=== PATIENT | female | born 1955 | race Caucasian/White ===

== ENCOUNTER → 2020-05-02 13:47 | Outpatient (CLI) | payer OTHER, SELFPAY ==
--- NOTE | ~2020-05-02 | MM_ITS ---
EXAMINATION: MM screening [facility] BI w brit HISTORY: Screening mammogram TECHNIQUE: Craniocaudal and mediolateral oblique 3-D tomosynthesis images were obtained and synthetic 2-D images were generated. CAD analysis was submitted and interpreted. COMPARISON: 02/24/2019, 12/31/2017, 12/05/2016, 11/25/2016 BREAST PARENCHYMAL COMPOSITION: There are scattered areas of fibroglandular density. FINDINGS: There is no evidence of suspicious mass, calcification, or architectural distortion to sugg est malignancy in either breast. There has been no suspicious interval change. IMPRESSION: 1. No mammographic evidence of malignancy. 2. Recommend routine screening mammography in one year. BI-RADS Category 1: Negative Reviewed, dictated and finalized at location A. CLEANER
== END ==
PROVIDERS: Visit Provider Obstetrics & Gynecology Gynecology
DX: Z12.31 Encounter for screening mammogram for malignant neoplasm of breast (principal)
CPT/HCPCS: 77063; 77067

== ENCOUNTER → 2021-06-28 09:47 | Outpatient (CLI) | payer OTHER, SELFPAY ==
--- NOTE | ~2021-06-28 | MM_ITS ---
EXAMINATION: MM screening [facility] BI w brit HISTORY: Screening mammogram TECHNIQUE: Craniocaudal and mediolateral oblique 3-D tomosynthesis images were obtained and synthetic 2-D images were generated. CAD analysis was submitted and interpreted. COMPARISON: 05/02/2020, 02/24/2019, 12/31/2017 BREAST PARENCHYMAL COMPOSITION: There are scattered areas of fibroglandular density. FINDINGS: Scattered benign-appearing calcifications are present. There is no evidence of suspicious m ass, calcification, or architectural distortion to suggest malignancy in either breast. There has bee n no suspicious interval change. IMPRESSION: 1. No mammographic evidence of malignancy. 2. Recommend routine screening mammography in one year. BI-RADS Category 2: Benign finding(s). Reviewed, dictated and finalized at location A. 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
== END ==
PROVIDERS: Visit Provider Obstetrics & Gynecology Gynecology
DX: Z12.31 Encounter for screening mammogram for malignant neoplasm of breast (principal)
CPT/HCPCS: 77063; 77067

== ENCOUNTER → 2022-10-09 11:00 | Outpatient (CLI) | payer OTHER, SELFPAY ==
--- NOTE | ~2022-10-09 | MM_ITS ---
EXAMINATION: MM screening [facility] w b[facility] HISTORY: Screening mammogram TECHNIQUE: Craniocaudal and mediolateral oblique 3-D tomosynthesis images were obtained and synthetic 2-D images were generated. CAD analysis was submitted and interpreted. COMPARISON: 06/28/2021, 05/02/2020, 02/24/2019 BREAST PARENCHYMAL COMPOSITION: There are scattered areas of fibroglandular density. FINDINGS: Scattered benign-appearing calcifications are present. RIGHT BREAST: No suspicious mass, calcification, or architectural distortion are identified to sugges t malignancy. There has been no suspicious interval change. LEFT BREAST: There is possible architectural distortion in the middle third of the left breast best a ppreciated 6.5 cm from the nipple on the mediolateral oblique view. IMPRESSION: 1. Possible left breast architectural distortion. 2. Additional mammographic views and possible breast ultrasound are recommended. BI-RADS Category 0: Incomplete: Needs additional imaging evaluation. Reviewed, dictated and finalized at location A. IMPRESSION: 1. Possible left breast architectural distortion. 2. Additional mammographic views and possible breast ultrasound are recommended . BI-RADS Category 0: Incomplete: Needs additional imaging evaluation.
== END ==
PROVIDERS: PCP Obstetrics & Gynecology Gynecology; Visit Provider Obstetrics & Gynecology Gynecology
DX: Z12.31 Encounter for screening mammogram for malignant neoplasm of breast (principal); R92.8 Other abnormal and inconclusive findings on diagnostic imaging of breast
CPT/HCPCS: 77063; 77067

== ENCOUNTER → 2022-10-09 14:40 | Outpatient (CLI) | payer OTHER, SELFPAY ==
--- NOTE | ~2022-10-09 | DEXA_ITS ---
Bone Density Report Name: KIM ZELAYA Age: 67 Sex: Female Ethnicity: White Date of : 1955 Indication: postmenopausal; screening for osteoporosis; height loss; Referring Provider: CLOVIS WILKINS Study: Bone densitometry was performed. Exam Date: October 09, 2022 Accession number: [id number] Bone Density: Region BMD T-score Z-score Classification AP Spine (L1-L4) 0.923 -1.1 0.7 Osteopenia Femoral Neck (Left) 0.766 -0.7 0.8 Normal Total Hip (Left) 1.060 1.0 2.3 Normal Femoral Neck (Right) 0.821 -0.3 1.3 Normal Total Hip (Right) 1.045 0.8 2.1 Normal Total Hip Mean 1.053 0.9 2.2 Normal World Health Organization criteria for BMD impression classify patients as: Normal (T-score at or above -1.0), Osteopenia (T-score between -1.0 and -2.5), or Osteoporosis (T-score at or below -2.5). 10-year Fracture Risk(1): Major Osteoporotic Fracture 7.0% Hip Fracture 0.4% Reported Risk Factors: [place] (), Neck BMD=0.766, BMI=41.1 (1) FRAX(R) Version 3.08. Fracture probability calculated for an untreated patient. Fracture probability may be lower if the patient has received treatment. Previous Exams: Region Exam Age BMD T-score BMD Change BMD Change Date g/cm2 vs Baseline vs Previous AP Spine(L1-L4) 10/09/2022 67 0.923 -1.1 -0.100* -0.013 02/24/2019 63 0.936 -1.0 -0.087* 0.025* 11/25/2016 61 0.911 -1.2 -0.112* -0.098* 10/19/2013 58 1.010 -0.3 -0.013 -0.013 11/13/2004 49 1.023 -0.2 Total Hip(Left) 10/09/2022 67 1.060 1.0 -0.189* -0.018 02/24/2019 63 1.078 1.1 -0.171* 0.054* 11/25/2016 61 1.024 0.7 -0.225* -0.074* 10/19/2013 58 1.098 1.3 -0.151* -0.151* 11/13/2004 49 1.249 2.5 Total Hip(Right) 10/09/2022 67 1.045 0.8 -0.196* -0.010 02/24/2019 63 1.055 0.9 -0.186* 0.079* 11/25/2016 61 0.976 0.3 -0.265* -0.097* 10/19/2013 58 1.073 1.1 -0.168* -0.168* 11/13/2004 49 1.241 2.4 *Denotes significance at 95% confidence level, LSC for AP Spine = 0.022 g/cm2, LSC for Total Hip = 0.027 g/cm2 Clinical Information Provided by Patient: Has used the following medications: Vitamin D Patient maximum height was 68 Menopause Age: 53 No regular weight bearing exercise Does not regularly consume dairy products Drinks caff
== END ==
PROVIDERS: PCP Obstetrics & Gynecology Gynecology; Visit Provider Obstetrics & Gynecology Gynecology
DX: Z78.0 Asymptomatic menopausal state (principal); M85.88 Other specified disorders of bone density and structure, other site
CPT/HCPCS: 77080

== ENCOUNTER → 2022-11-05 08:20 | Outpatient (CLI) | payer OTHER, SELFPAY ==
--- NOTE | ~2022-11-05 | MM_ITS ---
EXAMINATION: MM diagnostic [facility] w brit HISTORY: Possible left breast architectural distortion on screening mammogram TECHNIQUE: Additional 3-D tomosynthesis images of the left breast were performed and synthetic 2-D im ages were generated. CAD analysis was submitted and interpreted. COMPARISON: 09/29/2022, 07/18/2021,05/02/2020 FINDINGS: There is a return to baseline fibroglandular appearance with spot compression of the left b reast in the area questioned on screening mammogram. IMPRESSION: 1. No mammographic evidence of malignancy. 2. Recommend routine screening mammography in one year. BI-RADS Category 1: Negative Reviewed, dictated and finalized at location A.
== END ==
PROVIDERS: Visit Provider Obstetrics & Gynecology Gynecology
DX: R92.8 Other abnormal and inconclusive findings on diagnostic imaging of breast (principal)
CPT/HCPCS: 77061; 77065; G0279

== ENCOUNTER 2023-10-22 05:50 | Day surgery (SDC) | payer OTHER, SELFPAY ==
[2023-07-21 09:57] VITALS: BMI 32.9
[2023-10-22] VITALS (10 sets, daily range): BP systolic 120–150; BP diastolic 56–76; PULSE 59–94; RESP 12–22; TEMP 36.4–36.8; O2SAT 91–100; BMI 33.3
--- NOTE | 2023-10-22 06:56 | P.PNAN_ITS ---
Anes - Initial Pre Proc Eval Procedure: Operation Date: 10/22/23 07:30 Proposed Procedures p Bilateral Breast Reduction Mammoplasty - Byron Gambino MD Date/Time: 10/22/23 06:56 Surgeon: Byron Gambino MD Pre Op Diagnosis: Macromastia Patient Data Age: 68 Gender: F Height: 1.7 m Weight: 96.7 kg Last Vital Signs Temp 36.8 C 10/22/23 06:35 Pulse 68 10/22/23 06:35 Resp 16 10/22/23 06:35 BP 120/66 10/22/23 06:35 Pulse Ox 100 10/22/23 06:35 O2 Del Method Room Air 10/22/23 06:35 Allergies Allergy/AdvReac Type Severity Reaction Status Date / Time No Known Allergies Allergy Verified 10/22/23 06:17 Home Medications Medication Instructions Recorded Confirmed Type bupropion HCl 300 mg 24 hr tablet, 300 mg PO DIRECTED 10/08/23 10/22/23 History extended release ergocalciferol (vitamin D2) 1,250 1,250 mcg PO DIRECTED 10/08/23 10/22/23 History mcg (50,000 unit) capsule ferrous sulfate 325 mg (65 mg 325 mg PO DIRECTED 10/08/23 10/22/23 History iron) tablet (FeroSul) fexofenadine-pseudoephedrine ER 1 tablet PO DAILY 10/08/23 10/22/23 History 180 mg-240 mg tablet,ext.release 24 hr (Pam-D 24 Hour) fluticasone 250 mcg-salmeterol 50 1 inh inhalation BID 10/08/23 10/22/23 History mcg/dose blistr powdr for inhalation (Advair Diskus) montelukast 10 mg tablet 10 mg PO DIRECTED 10/08/23 10/22/23 History Patient hx anesthesia problems: none Family hx anesthesia problems: none Results Review: All pre-operative results and documents have been reviewed as part of the pre- operative evaluation. [facility] Past Medical History Medical History (Updated 10/22/23 @ 06:57 by Miguel Estevez DO) Depression Hiatal hernia PONV (postoperative nausea and vomiting) Social History Social History Smoking status: Never smoker Substance use type: does not use Living arrangements: with family Anes - Eval Final PreProcedure Day of Procedure 10/22/23 06:56 Patient weight: obese Heart: regular rate and rhythm Lungs: clear to auscultation Airway: Mallampati scale class II Neurological: alert and oriented Last oral intake: >/= 8 hours ASA classification: II Emergent: no Anesthetic plan: proceed Anesthesia type and monitoring: general LMA and standard monitoring Results Review: All pre-operative results and documents have been reviewed as part of the pre- operative evaluation. Informed Consent: The patient's anesthetic plan and its attendant risks and benefits were discussed with the patient/family/POA. Questions were solicited and answers provided to the satisfaction of the patient/family/POA.
--- NOTE | 2023-10-22 07:12 | WPDHPUPDATE1 ---
History and Physical Update Update Date/Time: 10/22/23 07:12 History and Physical has been reviewed, including an updated exam of the patient. There are NO changes in the patient's condition. Risks, benefits, and alternatives have been discussed and questions answered. Patient agrees to proceed with procedure.
--- NOTE | 2023-10-22 07:13 | P.OP_ITS ---
Procedure Note - Detailed Date of Procedure 10/22/23 Pre-op Diagnosis Macromastia Post-op Diagnosis Same Procedure Performed Bilateral reduction mammaplasty Surgeon Byron Gambino MD Anesthesia General Findings Inverted T Superior medial pedicle Tissue removed: Right - 804 grams Left - 872 grams Lipoaspirate: 1,000 cc Description of Procedure She is here today for bilateral breast reduction. Previously and again today the risks, benefits, alternatives were discussed in extensive detail. I wanted her to be very realistic about the risks involved as well as expectations. We discussed aftercare and what to monitor for. She understands we can never guarantee final breast size and there will always be asymmetry. I was very upfront and honest about the risks of sensation change and even nipple loss (). Made sure answered all of her questions to her satisfaction today and consent was obtained. She was marked in the preoperative holding area with their verification. The patient was taken to the operating room placed supine on the operating table. Anesthesia was provided by anesthesiology. She was prepped and draped in a standard sterile fashion. A surgical time-out was taken. Stab incisions were made and I tumesced with a tumescent solution. Suction lipectomy of lateral breast / chest wall was completed for contouring based on [employer] liposuction techniques utilizing a 4mm basket cannula. This was based on preoperative planning, intraoperative observation, and a rolling pinch test which was in full agreement. I marked out the nipple-areolar complex at 42 mm. I then de-epithelialized the pedicle. The pedicle was well left well more than 2 cm in thickness. I then removed the inferior portion of the breast as well as the central keel to get shape based on preoperative planning. At this point copiously irrigated with saline solution and verified a strict hemostasis. I reapproximated the pillars using a 2-0 PDS. I tailor tacked the breast into place with altaf. She was placed in a sitting position. I verified the nipple-areolar complex position based on preoperative markings, intraoperative measurements, and observation which were in full agreement. This nipple-areolar complex was marked at 42 mm in size. I then placed supine and de-epithelialized this. Nipple-areolar complex was inset with 3-0 Monocryl. I closed IMF deep with 1 strattafix. I closed the vertical incision with 3-0 Monocryl in the IMF with 3- 0 stratafix. Then everything was closed using a running subcuticular 4-0 Monocryl and tissue glue. A dressing was placed followed by surgical bra. Patient was awoke and taken to PACU without difficulty. All instrument sponge counts were correct at the end of the case. Estimated Blood Loss 75 Drains No Packing No Pathology Yes Complications No immediate complications Condition Stable Disposition PACU
--- NOTE | 2023-10-22 07:14 | SUR.PREOP ---
FEMALE STAFF MEMBER IN ROOM WITH DR UMAÑA WHILE HE MARKED PT. SPOUSE ALSO IN ROOM
[2023-10-22] MEDS: LACTATED RINGERS 1,000 ML 30 ML IV CONT ×2 (07:16→11:05)
[2023-10-22] MEDS: SCOPOLAMINE 1 MG PATCH 1 PATCH TRANSDERM (07:17)
[2023-10-22] MEDS: ceFAZolin SODIUM 2 GM/20 ML SW SYRINGE IV PUSH (07:24)
[2023-10-22] MEDS: LACTATED RINGERS IRRIG 1,000 ML, LIDOCAINE HCL 1% LOCAL INJ 50 ML, EPINEPHrine HCL INJ ... INFILTRATE (07:35)
[2023-10-22] MEDS: TRANEXAMIC ACID 1,000 MG/10 ML AMPUL 1000 MG IV PUSH (07:40)
[2023-10-22] MEDS: ONDANSETRON INJ 4 MG/2 ML VIAL IV PUSH (12:20)
--- NOTE | 2023-10-22 13:28 | WPDANESPN ---
Anes - Prog Note Post-Op Date/Time: 10/22/23 13:28 Cardiovascular status: normal Respiratory status: normal Airway patency: baseline Mental status: baseline Post-Op hydration status: normal Vital Signs: Last Vital Signs Temp 36.4 C 10/22/23 11:00 Pulse 59 L 10/22/23 13:15 Resp 16 10/22/23 13:15 BP 125/68 10/22/23 13:15 Pulse Ox 98 10/22/23 13:15 O2 Del Method Room Air 10/22/23 13:15 O2 Flow Rate 2 10/22/23 11:45 Pain Score (VAS): 3 I/O: Intake & Output 10/21/23 10/22/23 10/22/23 23:59 07:59 15:59 Intake Total 500 Balance 500 Post-procedural complaints: none Patient Feedback: Patient satisfied with anesthetic care. Other Findings: Patient vital signs back to baseline. Patient denies nausea and vomiting. Patient's pain under control. Patient OK for discharge.
== END 2023-10-22 13:45 | disposition home or self-care (01) ==
PROVIDERS: Visit Provider Surgery Plastic and Reconstructive Surgery
PROC: 0HBV0ZZ Excision of Bilateral Breast, Open Approach (ICD-10-PCS; CPT 19318; principal; 2023-10-22 07:30)
DX: N62 Hypertrophy of breast (principal)
CPT/HCPCS: 19318

== ENCOUNTER 2023-10-22 07:00 | Outpatient (NON) | payer OTHER, SELFPAY | END 2023-10-22 07:01 | disposition home or self-care (01) | PROVIDERS: Visit Provider Surgery Plastic and Reconstructive Surgery | DX: N62 Hypertrophy of breast (principal) | CPT/HCPCS: 88305 ==